=== PATIENT | female | born 1970 | race Caucasian/White ===

== ENCOUNTER → 2018-07-11 | Day surgery (SDC) | payer MEDICARE, MEDICAID ==
[~2018-07-11] VITALS: Ht 154.9 cm; Wt 104.0 kg
[~2018-07-11] MED LIST: ALBUTEROL SULFATE 2.5 MG/0.5 ML NEB SOLUTION NEB ONE; ARIP400S3 IM; BENZOCAINE 20% 50 MCG/SPRAY 57 GM TP ONE; CARV12 PO; ESCI10TA PO; FURO40 PO; FentaNYL CITRATE-PF 100 MCG/2 ML VIAL ONE; INSU100V SQ; LEVO112T4 PO; LIDOCAINE 2% 30 ML JELLY TP ONE; LISI-662 PO; LOVA20 PO; MIDAZOLAM HCL 2 MG/2 ML VIAL ONE; MethylPREDNISolone SOD SUCC 125 MG/2 ML VIAL IVP ONE; MethylPREDNISolone SOD SUCC 125 MG/2 ML VIAL ONE; OXYGEN THERAPY IH SCH; PHOSLOC PO; SODIUM CHLORIDE 0.9% 1,000 ML IV ONE
[2018-07-11 08:24] LABS: GLUCOMETER DEV NAME(LOC) SDS 5; GLUCOSE,POINT OF CARE 145 MG/DL (70-110)
== END | disposition home or self-care (01) ==
LOC: SURGERY 06:18
PROVIDERS: ATTEND Internal Medicine Critical Care Medicine
DX: J38.4 Edema of larynx (principal); B37.0 Candidal stomatitis; J84.111 Idiopathic interstitial pneumonia, not otherwise specified; J45.998 Other asthma; I11.9 Hypertensive heart disease without heart failure; E11.9 Type 2 diabetes mellitus without complications; E78.00 Pure hypercholesterolemia, unspecified; Z99.2 Dependence on renal dialysis; Z79.4 Long term (current) use of insulin; Z79.84 Long term (current) use of oral hypoglycemic drugs; Z98.890 Other specified postprocedural states; Z79.899 Other long term (current) drug therapy
CPT/HCPCS: 31623; 31624; 71045; 82962; 87015; 87070; 87205; 87206; 87220; 88108; 88312; J2250; J2930; J3010; J7030